=== PATIENT | male | born 1990 | race Asian ===

== ENCOUNTER 2017-05-07 16:44 | Emergency (ER) | payer SELFPAY ==
[~2017-05-07] VITALS: Ht 167.6 cm; Wt 68.0 kg
[2017-05-07 16:45] VITALS: BP_SYST 153
[2017-05-07] MEDS ORDERED: PROPARACAINE (OPTHANINE 0.5%) 15 ML DROPS OP ONE (17:45)
[2017-05-07] MEDS ORDERED: CIPRO HC 10 ML OTIC SUSPENSION OT ONE (18:30)
[2017-05-07] MEDS: HYDROcodone/ACETAMIN 10-325 MG TAB PO ONE (18:50)
[2017-05-07] MEDS: DIPH-TET-PERTUS Vaccine 0.5 ML VIAL (ADACEL) I.M. ONE (18:50)
[2017-05-07] MEDS: BACITRACIN 1 GM OINT TP ONE (18:51)
[2017-05-07] MEDS: AMOXICILLIN/CLAVULANATE POTASSIUM 875 MG TABLET PO ONE (19:34)
[2017-05-07] MEDS: CIPROFLOXACIN HCL 0.3% EYE DRP 2.5 ML DROPS OP ONE (19:35)
[2017-05-07] MEDS: CLINDAMYCIN HCL 150 MG CAPSULE PO ONE (19:35)
[2017-05-07 19:41] VITALS: BP_SYST 142
== END 2017-05-07 19:41 | disposition home or self-care (01) ==
LOC: SED 16:44
DX: T20.56XA Corrosion of first degree of forehead and cheek, initial encounter (principal); T51.1X1A Toxic effect of methanol, accidental (unintentional), initial encounter; T26.92XA Corrosion of left eye and adnexa, part unspecified, initial encounter; R03.0 Elevated blood-pressure reading, without diagnosis of hypertension; Y93.89 Activity, other specified; Y92.89 Other specified places as the place of occurrence of the external cause; Y99.8 Other external cause status
CPT/HCPCS: 90715; 99284